=== PATIENT | female | born 1950 | race Caucasian/White ===

== ENCOUNTER → 2018-10-05 | Outpatient (CLI) | payer OTHER ==
[2018-10-10 10:17] LABS: Candida species (DNA Probe) Negative (NEGATIVE); G. vaginalis (DNA Probe) Negative (NEGATIVE); T. vaginalis (DNA Probe) Negative (NEGATIVE)
== END | disposition home or self-care (01) ==
LOC: LAB 16:00 → LAB SHORT 16:00
PROVIDERS: Registered Nurse
DX: N76.0 Acute vaginitis (principal); L29.3 Anogenital pruritus, unspecified; N94.9 Unspecified condition associated with female genital organs and menstrual cycle
CPT/HCPCS: 87480; 87510; 87660

== ENCOUNTER → 2020-06-17 | Outpatient (CLI) | payer OTHER ==
[2020-06-17 20:09] LABS: Percent Saturation 28.3 % (15.0-50.0)
== END | disposition home or self-care (01) ==
LOC: LAB SHORT 17:11 → LAB 17:11
PROVIDERS: Internal Medicine Hematology & Oncology
DX: D52.8 Other folate deficiency anemias (principal)
CPT/HCPCS: 82728; 83540; 83550

== ENCOUNTER → 2023-11-09 | Outpatient (CLI) | payer MEDICARE, OTHER ==
[~2023-11-09] MED LIST: AMLODIPINE BES2.5 MG PO; Buspirone HCl15 MG PO; CLOMIPRAMINE HC25 M2 PO; K-Dur10 MEQ; Lisinopril2.5 MG PO; MS Contin15 MG PO; OMEP20ER PO; OXYC10TA19 PO; PRAV20 PO; PRAZOSIN HCL1 M2 PO; SERT25 PO; TIOT18 INH; TIZA4 PO; Ventolin/Prove6.7 GM INH
[2023-11-12 05:52] LABS: COTININE, URN, SCREEN Negative ng/mL (Cutoff 100)
== END ==
LOC: LAB SHORT 15:28 → LAB 15:28 → EDSTATUS 11-03 07:25 → LAB FUT 11-03 07:25
PROVIDERS: Physician Assistant Surgical
DX: Z87.891 Personal history of nicotine dependence (principal)

== ENCOUNTER 2024-02-15 07:50 | Day surgery (SDC) | payer MEDICARE, OTHER ==
[2024-02-15] VITALS (18 sets, daily range): BP systolic 91–149; BP diastolic 49–84
[~2024-02-15] VITALS: Ht 149.9 cm; Wt 44.5 kg
[~2024-02-15 07:50] MED LIST changes: +Acetaminophen 500 MG Tab PO SCH; +CeFAZolin Sodium 2,000 MG in NS 100 ML IV SCH; +Chlorhexidine Mouth Care 15 ML UDC MT SCH; -K-Dur10 MEQ; +K-Dur10 MEQ PO; +Lactated Ringer's 1,000 ML IV SCH; +OxyCODONE HCL 10 MG TABCR PO SCH; +Ropivacaine 0.5% HCl/Pf 123.125 MG,EPINEPHrine HCL 0.25 MG,Ketorolac Tromethamine 15 MG... INFIL SCH; +TRELEGY ELLIPT1 EACH INH
[2024-02-15] MEDS ORDERED: Tranexamic Acid 100 ML IV SCH (07:51)
[2024-02-15] MEDS ORDERED: ALBU90OI INH (08:36)
[2024-02-15] MEDS ORDERED: Dexamethasone Sod Phos 10 MG/ML 1ML VIAL ONE (09:51)
[2024-02-15] MEDS ORDERED: Ondansetron HCl 2 MG / ML 2ML Vial ONE (09:51)
[2024-02-15] MEDS ORDERED: propofoL 20 ML IV ONE (09:51)
[2024-02-15] MEDS ORDERED: Ketorolac Tromethamine 30mg Vial ONE (09:51)
--- NOTE | 2024-02-15 09:52 | NUR ---
DR CABALLERO AND DR CALDERON ASKED IF OK TO GIVE OXYCONTIN PRESCRIBED DESPITE TAKING SCHEDULED NARCOTICS AT [address] CABALLERO AND DR CALDERON OK WITH OXYCONTIN.
[2024-02-15] MEDS ORDERED: TiZANidine HCl 4 MG Tab PO PRN (10:15)
[2024-02-15] MEDS ORDERED: DiphenhydrAMINE HCL 25 MG Cap PO PRN (10:15)
[2024-02-15] MEDS ORDERED: Bisacodyl 10 MG Supp PR PRN (10:15)
[2024-02-15] MEDS ORDERED: Promethazine HCl 25 MG Tab PO PRN (10:20)
[2024-02-15] MEDS ORDERED: Magnesium Hydroxide Conc 10 ML UDC PO PRN (10:25)
[2024-02-15] MEDS ORDERED: HYDROmorphone HCl/Pf 1MG SYR IV PRN (10:25)
[2024-02-15] MEDS ORDERED: Ondansetron HCl 2 MG / ML 2ML Vial IV PRN (10:25)
[2024-02-15] MEDS ORDERED: Prochlorperazine Edisylate 10 mg Vial IV PRN (10:25)
[2024-02-15] MEDS ORDERED: Lactated Ringer's 1,000 ML IV SCH (10:25)
[2024-02-15] MEDS ORDERED: OxyCODONE HCL 5 MG TAB PO PRN ×2 (10:25)
[2024-02-15] MEDS ORDERED: Metoclopramide HCl 5MG / ML 2ML Vial IV PRN (10:25)
[2024-02-15] MEDS ORDERED: FentaNYL Citrate 50 MCG/ML 2 ML Injection ONE ×2 (10:49→11:29)
[2024-02-15] MEDS ORDERED: Albuterol HFA200 ACT/6.7 GM INH INH PRN (11:10)
--- NOTE | 2024-02-15 12:55 | NUR ---
ARRIVAL TO UNIT PT ARRIVED TO UNIT FROM PACU ON BED. A&Ox4, SLEEPY- ANSWERS QUESTIONS APPROPRIATELY. VSS, PT ON 2L O2 VIA NC TO MAINTAIN SATS >90%. DAUGHTER AT BEDSIDE WITH PATIENT. L HIP AQUACEL C/D/I. POLAR PACK IN PLACE. PT DENIED NEEDS AT THIS TIME, REQUESTS WANT TO SLEEP. CALL LIGHT IN REACH, BED IN LOWEST POSITION, ORIENTED TO ROOM.
[2024-02-15] MEDS ORDERED: Acetaminophen 500 MG Tab PO SCH (16:00)
[2024-02-15] MEDS ORDERED: Omeprazole 20 MG CapCR PO SCH (16:30)
[2024-02-15] MEDS ORDERED: ASPI81CH PO (16:48)
[2024-02-15] MEDS ORDERED: CeFAZolin Sodium 2,000 MG in NS 100 ML IV SCH (18:00)
[2024-02-15] MEDS ORDERED: Ketorolac Tromethamine 15mg Vial IV SCH (18:00)
--- NOTE | 2024-02-15 18:08 | NUR ---
SHIFT SUMMARY POD 0 L CHRIS. NO ACUTE CHANGES TODAY. VSS, PRN O2 VIA NC TO MAINTAIN SAT >90%. TOLERATING ORALS. AMBULATES USING FWW c GB & 1 PERSON ASSIST; PT WEAK; WORKED c PHYSCIAL THERAPY TODAY, RECOMMENED TO WORK WITH THERAPY AGAIN IN THE MORNING BEFORE DISCHARGE. AQUACEL C/D/I. POLAR PACK IN USE. PT REPORTS PAIN TOLERABLE, MEDICATED PER EMAR. ANTICIPATED D/C TOMORROW. CALL LIGHT IN REACH, BED IN LOWEST POSITION, WILL REPORT TO NOC RN.
[2024-02-15] MEDS ORDERED: BusPIRone HCl 10 MG Tab PO SCH (21:00)
[2024-02-15] MEDS ORDERED: Docusate Sodium 100 MG Cap PO SCH (21:00)
[2024-02-15] MEDS ORDERED: Prazosin HCl 1 MG Cap PO SCH (21:00)
[2024-02-16 04:52] VITALS: BP 105/62
--- NOTE | 2024-02-16 06:01 | NUR ---
SHIFT SUMMARY PT POD 0 LEFT TOTAL HIP. PT HAS RESTED T/O THE NIGHT. PAIN HAS BEEN WELL MANANGED WITH MEDS PER EMAR. PT TOLERATING PO INTAKE AND IS VOIDING. SURGICAL SITE WNL. VITALS ARE STABLE. BED IN LOWEST POSITION, CALL LIGHT WITHIN REACH.
[2024-02-16 06:03] LABS: BASOPHILS ABSOLUTE AUTO 0.03 K/mm3 (0.00-0.23); BASOPHILS PERCENT AUTO 1 % (0-2); EOSINOPHILS ABSOLUTE AUTO 0.04 K/mm3 (0.00-0.68); EOSINOPHILS PERCENT AUTO 1 % (0-6); Hematocrit 20.8 % (33.0-51.0); Hemoglobin 6.5 g/dL (11.5-16.0); IMMATURE GRAN ABSOLUTE AUTO 0.02 K/mm3 (0.00-0.10); IMMATURE GRAN PERCENT AUTO 0 % (0-1); LYMPHOCYTES ABSOLUTE AUTO 1.75 K/mm3 (0.84-5.20); LYMPHOCYTES PERCENT AUTO 28 % (21-46); MONOCYTES ABSOLUTE AUTO 0.42 K/mm3 (0.16-1.47); MONOCYTES PERCENT AUTO 7 % (4-13); Mean Corpuscular HGB 32.7 pg (26.0-34.0); Mean Corpuscular HGB Conc 31.3 g/dL (31.5-36.5); Mean Corpuscular Volume 105 fL (80-100); Mean Platelet Volume 10.1 fL (9.1-12.4); NEUTROPHILS PERCENT AUTO 64 % (41-73); Platelet Count 202 K/mm3 (150-400); RDW Coefficient Variation 13.9 % (11.7-14.2); RDW Standard Deviation 53.1 fL (35.1-46.3); Red Blood Cell Count 1.99 M/mm3 (3.80-5.20); White Blood Cell Count 6.26 K/mm3 (4.00-11.30)
--- NOTE | 2024-02-16 06:24 | NUR ---
HGB PT HGB 6.5 WITH AM LABS, NO SIGNS OF BLEEDING. PT ASYMPTOMATIC. VITALS ARE STABLE. [employer] MENDER TOM ALDRIDGE NOTIFIED. SHE STATES DR. CABALLERO WILL BE MAKING ROUNDS SHORTLY. NO NEED TO CALL PROVIDER AT THIS TIME. WILL NOTIFY DAYSHIFT RN IN REPORT FOR FURTHER FOLLOW UP.
[2024-02-16 06:42] LABS: Bun/Creatinine Ratio 23.7 (12.0-20.0); Calcium, Blood 7.9 mg/dL (8.5-10.1); Creatinine, Blood 0.8 mg/dL (0.40-1.00)
--- NOTE | 2024-02-16 06:52 | NUR ---
HGB DAYSHIFT VIRGILIO KEMP NOTIFIED OF HGB RESULT OF 6.5 AND WILL FOLLOW UP WITH PROVIDER DURING ROUNDS.
[2024-02-16 08:08] VITALS: BP 120/67
[2024-02-16] MEDS ORDERED: Lisinopril 5 MG Tab PO SCH (09:00)
[2024-02-16] MEDS ORDERED: TRELEGY INHALER INH SCH (09:00)
[2024-02-16] MEDS ORDERED: ClomiPRAMINE HCl 25 MG Cap PO SCH (09:00)
[2024-02-16] MEDS ORDERED: AmLODIPine Besylate 5 MG Tab PO SCH (09:00)
[2024-02-16] MEDS ORDERED: Atorvastatin 10 MG Tab PO SCH (09:00)
[2024-02-16] MEDS ORDERED: Sertraline HCl 50 MG Tab PO SCH (09:00)
[2024-02-16] MEDS ORDERED: Aspirin 81 MG Chew PO SCH (09:00)
[2024-02-16] MEDS ORDERED: Potassium Chloride 10 Meq Tablet SA PO SCH (09:00)
[2024-02-16 10:12] LABS: BASOPHILS ABSOLUTE AUTO 0.03 K/mm3 (0.00-0.23); BASOPHILS PERCENT AUTO 1 % (0-2); EOSINOPHILS ABSOLUTE AUTO 0.04 K/mm3 (0.00-0.68); EOSINOPHILS PERCENT AUTO 1 % (0-6); Hematocrit 22.1 % (33.0-51.0); IMMATURE GRAN ABSOLUTE AUTO 0.02 K/mm3 (0.00-0.10); IMMATURE GRAN PERCENT AUTO 0 % (0-1); LYMPHOCYTES ABSOLUTE AUTO 1.19 K/mm3 (0.84-5.20); LYMPHOCYTES PERCENT AUTO 18 % (21-46); MONOCYTES ABSOLUTE AUTO 0.45 K/mm3 (0.16-1.47); MONOCYTES PERCENT AUTO 7 % (4-13); Mean Corpuscular HGB 32.7 pg (26.0-34.0); Mean Corpuscular HGB Conc 31.7 g/dL (31.5-36.5); Mean Corpuscular Volume 103 fL (80-100); Mean Platelet Volume 10.2 fL (9.1-12.4); NEUTROPHILS ABSOLUTE AUTO 4.86 K/mm3 (1.96-9.15); NEUTROPHILS PERCENT AUTO 74 % (41-73); Platelet Count 210 K/mm3 (150-400); RDW Coefficient Variation 13.7 % (11.7-14.2); RDW Standard Deviation 52.6 fL (35.1-46.3); Red Blood Cell Count 2.14 M/mm3 (3.80-5.20); White Blood Cell Count 6.59 K/mm3 (4.00-11.30)
[2024-02-16 15:23] VITALS: BP 133/70
--- NOTE | 2024-02-16 15:25 | NUR ---
DISCHARGE REVIEWED PRINTED D/C INSTRUCTIONS WITH PATIENT & DAUGHETER, BOTH VERBALIZED UNDERSTANDING. D/C HOME IN NO ACUTE DISTRESS.
[2024-02-16] MEDS ORDERED: Morphine Sulfate 15 MG TABCR PO SCH (21:00)
--- NOTE | 2024-02-17 16:39 | NUR ---
02/17/24 1639 Vy Dejesus VERIFICATIONS: EDIT CHART.
== END 2024-02-16 15:26 | disposition home or self-care (01) ==
LOC: ORSCMMR 07:50 → ORD 09:15 → ORSCMMR 12:48 → SURS 12:48 → ORSCMMR 02-16 15:26 → SURS 02-16 15:26
PROVIDERS: Orthopaedic Surgery; Physician Assistant Surgical
PROC: 0SRB0J9 Replacement of Left Hip Joint with Synthetic Substitute, Cemented, Open Approach (ICD-10-PCS; principal; 2024-02-15 09:15)
DX: M16.12 Unilateral primary osteoarthritis, left hip (principal); M87.9 Osteonecrosis, unspecified; I10 Essential (primary) hypertension; F17.210 Nicotine dependence, cigarettes, uncomplicated; J44.9 Chronic obstructive pulmonary disease, unspecified; Z79.899 Other long term (current) drug therapy
CPT/HCPCS: 36415; 72170; 80048; 85025; 94760; 97110; 97116; 97162; A9270; C1713; C1776; J0171; J0690; J0735; J1100; J1885; J2405; J2704; J2795; J3010; J7120

== ENCOUNTER 2024-06-20 09:36 | Day surgery (SDC) | payer MEDICARE ==
[~2024-06-20 09:36] MED LIST changes: +ALBU90OI INH; +ASPI81CH PO; -Acetaminophen 500 MG Tab PO SCH; -CeFAZolin Sodium 2,000 MG in NS 100 ML IV SCH; -Chlorhexidine Mouth Care 15 ML UDC MT SCH; -Lactated Ringer's 1,000 ML IV SCH; -OxyCODONE HCL 10 MG TABCR PO SCH; -Ropivacaine 0.5% HCl/Pf 123.125 MG,EPINEPHrine HCL 0.25 MG,Ketorolac Tromethamine 15 MG... INFIL SCH
[2024-06-20] MEDS ORDERED: CeFAZolin Sodium 2,000 MG in NS 100 ML IV SCH (10:00)
[2024-06-20] MEDS ORDERED: Lactated Ringer's 1,000 ML IV SCH ×2 (10:00→10:30)
[2024-06-20] MEDS ORDERED: Acetaminophen 500 MG Tab PO SCH ×2 (10:00→16:00)
[2024-06-20] MEDS ORDERED: Chlorhexidine Mouth Care 15 ML UDC MT SCH (10:00)
[2024-06-20] MEDS ORDERED: Tranexamic Acid 100 ML IV SCH (10:00)
[2024-06-20] MEDS ORDERED: OxyCODONE HCL 10 MG TABCR PO SCH (10:00)
[2024-06-20] MEDS ORDERED: Ropivacaine 0.5% HCl/Pf 123.125 MG,EPINEPHrine HCL 0.25 MG,Ketorolac Tromethamine 15 MG... INFIL SCH (10:00)
--- NOTE | 2024-06-20 10:16 | NUR ---
inTO Day Surgery VIA W/C. ABLE TO AMBULATE W/CANE. Patient confirms NPO status and agrees with scheduled surgery. History, Chart, Medications and Allergies reviewed before start of procedure.Pre-Op teaching done. Pt verbalizes understanding.
--- NOTE | 2024-06-20 10:23 | NUR ---
PT HAS A 1 CM SCAB ON RIGHT BOUCHER THAT IS BLACK AND IS RED AROUND SCAB. DR. CABALLERO HERE LOOKING AT PT. WILL NEED TO RE-SCHEDULE WHEN WOUND HEALS.
[2024-06-20] MEDS ORDERED: Ondansetron HCl 2 MG / ML 2ML Vial IV PRN (10:35)
[2024-06-20] MEDS ORDERED: FLU VACC TS2024-25(6MOS UP)/PF 45 MCG/0.5 ML SYRINGE IM ONE (10:35)
[2024-06-20] MEDS ORDERED: Bisacodyl 10 MG Supp PR PRN (10:35)
[2024-06-20] MEDS ORDERED: HYDROmorphone HCl/Pf 1MG SYR IV PRN (10:35)
[2024-06-20] MEDS ORDERED: Metoclopramide HCl 5MG / ML 2ML Vial IV PRN (10:35)
[2024-06-20] MEDS ORDERED: Magnesium Hydroxide Conc 10 ML UDC PO PRN (10:35)
[2024-06-20] MEDS ORDERED: OxyCODONE HCL 5 MG TAB PO PRN ×2 (10:40)
[2024-06-20] MEDS ORDERED: DiphenhydrAMINE HCL 25 MG Cap PO PRN (10:40)
[2024-06-20] MEDS ORDERED: Promethazine HCl 25 MG Tab PO PRN (10:40)
--- NOTE | 2024-06-20 10:40 | NUR ---
PT D/C TO HOME W/ DAUGHTER VIA W/C IN STABLE CONDITION. PT INSTRUCTED TO CALL DR. CABALLERO OFFICE TO RESCHEDULE
[2024-06-20] MEDS ORDERED: Docusate Sodium 100 MG Cap PO SCH (21:00)
[2024-06-21] MEDS ORDERED: Aspirin 81 MG Chew PO SCH (09:00)
== END 2024-06-20 10:40 | disposition home or self-care (01) ==
LOC: ORSCMMR 09:36 → ORD 11:00
DX: M17.11 Unilateral primary osteoarthritis, right knee (principal); Z53.9 Procedure and treatment not carried out, unspecified reason
CPT/HCPCS: J0171; J0735; J1885; J2795

== ENCOUNTER 2024-07-25 10:58 | Day surgery (SDC) | payer MEDICARE ==
[2024-07-25] VITALS (14 sets, daily range): BP systolic 127–148; BP diastolic 62–89
[~2024-07-25] VITALS: Ht 154.9 cm; Wt 47.0 kg
[~2024-07-25 10:58] MED LIST changes: +Acetaminophen 500 MG Tab PO SCH; +CeFAZolin Sodium 2,000 MG VIAL ONE; +CeFAZolin Sodium 2,000 MG in NS 100 ML IV SCH; +Chlorhexidine Mouth Care 15 ML UDC MT SCH; +Lactated Ringer's 1,000 ML IV SCH; +Tranexamic Acid 100 ML IV SCH
[2024-07-25] MEDS ORDERED: propofoL 50 ML IV ONE (11:16)
[2024-07-25] MEDS ORDERED: Bupivacaine 0.5% Inj 10 ML Vial ONE (11:16)
[2024-07-25] MEDS ORDERED: Ondansetron HCl 2 MG / ML 2ML Vial ONE (11:18)
[2024-07-25] MEDS ORDERED: Dexamethasone Sod Phos 10 MG/ML 1ML VIAL ONE (11:18)
[2024-07-25] MEDS ORDERED: Ropivacaine 0.5% HCl/Pf 123.125 MG,EPINEPHrine HCL 0.25 MG,Ketorolac Tromethamine 15 MG... INFIL SCH (11:50)
[2024-07-25] MEDS ORDERED: OxyCODONE HCL 10 MG TABCR PO SCH (11:50)
[2024-07-25] MEDS ORDERED: Ketorolac Tromethamine 30mg Vial ONE (12:22)
[2024-07-25] MEDS ORDERED: TiZANidine HCl 4 MG Tab PO PRN (12:35)
[2024-07-25] MEDS ORDERED: OxyCODONE HCL 5 MG TAB PO PRN ×2 (12:45)
[2024-07-25] MEDS ORDERED: Promethazine HCl 25 MG Tab PO PRN (12:45)
[2024-07-25] MEDS ORDERED: Lactated Ringer's 1,000 ML IV SCH (12:50)
[2024-07-25] MEDS ORDERED: Ondansetron HCl 2 MG / ML 2ML Vial IV PRN (12:50)
[2024-07-25] MEDS ORDERED: Metoclopramide HCl 5MG / ML 2ML Vial IV PRN (12:50)
[2024-07-25] MEDS ORDERED: HYDROmorphone HCl/Pf 1MG SYR IV PRN (12:50)
[2024-07-25] MEDS ORDERED: FLU VACC TS2024-25(6MOS UP)/PF 45 MCG/0.5 ML SYRINGE IM SCH (12:50)
[2024-07-25] MEDS ORDERED: Magnesium Hydroxide Conc 10 ML UDC PO PRN (12:50)
[2024-07-25] MEDS ORDERED: Bisacodyl 10 MG Supp PR PRN (12:55)
[2024-07-25] MEDS ORDERED: DiphenhydrAMINE HCL 25 MG Cap PO PRN (12:55)
[2024-07-25] MEDS ORDERED: Mometasone/Formoterol MDI 100/5 mcg 13 GM INH SCH (13:05)
[2024-07-25] MEDS ORDERED: Ipratropium Bromide INH 0.02% 0.5 mg/2.5ML Vial INH SCH (13:05)
[2024-07-25] MEDS ORDERED: Albuterol HFA200 ACT/6.7 GM INH INH PRN (13:05)
--- NOTE | 2024-07-25 15:09 | NUR ---
PT ARRIVED TO THE ROOM FROM PACU AT 1450. PT ABLE TO MOVE HER FEET, SHE REPORTS SENSATION IS RETURNING TO BLE. PT ALERT, ORIENTED AND PLEASANT. PAIN SPINAL SITE WNL. R KNEE INCISION SITE WNL. VSS.
[2024-07-25] MEDS ORDERED: Acetaminophen 500 MG Tab PO SCH (16:00)
[2024-07-25] MEDS ORDERED: Omeprazole 20 MG CapCR PO SCH (16:30)
--- NOTE | 2024-07-25 17:45 | NUR ---
SHIFT SUMMARY PT IS POD#0 FROM R TKA WITH DR. CABALLERO. PAIN MANAGED WITH TYLENOL AND TORADOL THIS SHIFT. PT HAS VOIDED. SHE HAS BEEN OOB TO THE CHAIR. SHE IS TOLERATING PO. PT USES CALL LIGHT APPROPRIATELY.
[2024-07-25] MEDS ORDERED: Ketorolac Tromethamine 15mg Vial IV SCH (18:00)
[2024-07-25] MEDS ORDERED: CeFAZolin Sodium 2,000 MG in NS 100 ML IV SCH (20:00)
[2024-07-25] MEDS ORDERED: Morphine Sulfate 15 MG TABCR PO SCH (21:00)
[2024-07-25] MEDS ORDERED: Prazosin HCl 1 MG Cap PO SCH (21:00)
[2024-07-25] MEDS ORDERED: BusPIRone HCl 10 MG Tab PO SCH (21:00)
[2024-07-25] MEDS ORDERED: Docusate Sodium 100 MG Cap PO SCH (21:00)
[2024-07-26 05:46] VITALS: BP 177/86
[2024-07-26 06:10] LABS: BASOPHILS ABSOLUTE AUTO 0.04 K/mm3 (0.00-0.23); BASOPHILS PERCENT AUTO 0 % (0-2); EOSINOPHILS ABSOLUTE AUTO 0.07 K/mm3 (0.00-0.68); EOSINOPHILS PERCENT AUTO 1 % (0-6); Hemoglobin 8.6 g/dL (11.5-16.0); IMMATURE GRAN ABSOLUTE AUTO 0.03 K/mm3 (0.00-0.10); IMMATURE GRAN PERCENT AUTO 0 % (0-1); LYMPHOCYTES ABSOLUTE AUTO 2.31 K/mm3 (0.84-5.20); LYMPHOCYTES PERCENT AUTO 23 % (21-46); MONOCYTES ABSOLUTE AUTO 0.76 K/mm3 (0.16-1.47); MONOCYTES PERCENT AUTO 8 % (4-13); Mean Corpuscular HGB 30.3 pg (26.0-34.0); Mean Corpuscular HGB Conc 30.7 g/dL (31.5-36.5); Mean Corpuscular Volume 99 fL (80-100); Mean Platelet Volume 9.8 fL (9.1-12.4); NEUTROPHILS ABSOLUTE AUTO 6.83 K/mm3 (1.96-9.15); NEUTROPHILS PERCENT AUTO 68 % (41-73); Platelet Count 279 K/mm3 (150-400); RDW Coefficient Variation 17.4 % (11.7-14.2); RDW Standard Deviation 62.7 fL (35.1-46.3); Red Blood Cell Count 2.84 M/mm3 (3.80-5.20); White Blood Cell Count 10.04 K/mm3 (4.00-11.30)
[2024-07-26 06:46] LABS: Bun/Creatinine Ratio 15.7 (12.0-20.0); Calcium, Blood 8.6 mg/dL (8.5-10.1); Creatinine, Blood 1.02 mg/dL (0.40-1.00); Potassium, Blood 4.3 mmol/L (3.5-5.5)
[2024-07-26 07:27] VITALS: BP 126/62
[2024-07-26] MEDS ORDERED: ASPI81CH PO (07:55)
[2024-07-26] MEDS ORDERED: Pravastatin Sodium 20 MG Tab PO SCH (09:00)
[2024-07-26] MEDS ORDERED: Sertraline HCl 50 MG Tab PO SCH (09:00)
[2024-07-26] MEDS ORDERED: Lisinopril 5 MG Tab PO SCH (09:00)
[2024-07-26] MEDS ORDERED: ClomiPRAMINE HCl 25 MG Cap PO SCH (09:00)
[2024-07-26] MEDS ORDERED: Potassium Chloride 20 MEQ TabCR PO SCH (09:00)
[2024-07-26] MEDS ORDERED: Aspirin 81 MG Chew PO SCH (09:00)
[2024-07-26] MEDS ORDERED: AmLODIPine Besylate 5 MG Tab PO SCH (09:00)
--- NOTE | 2024-07-26 11:57 | NUR ---
DISCHARGE NOTE PATIENT CLEARED BY PHYSICAL THERAPY FOR DC. PATIENT ALERT AND ORIENTED X4 - COMMUNICATES NEEDS EFFECTIVELY. RECEPTIVE TO EDUCATION. VSS. POD 1 R TKA - AQUACEL AND ROBE WRAP DRESSING C/D/I. PAIN TOLERABLE WITH PRESCRIBED THERAPY, INCLUDING MEDICATIONS, COOLING DEVICE, EXERCISES. TOLERATING PO INTAKE. VOIDING. DISCHARGE EDUCATION PROVIDED - STATES UNDERSTANDING AND ASKS QUESTIONS PRN TO GAIN FURTHER UNDERSTANDING. IV REMOVED. PERSONAL BELONGINGS AND COOLING DEVICE WITH PATIENT. PATIENT TRANSFERRED TO PERSONAL VEHICLE VIA WHEELCHAIR AT APPROX 1150.
== END 2024-07-26 11:45 | disposition home or self-care (01) ==
LOC: ORSCMMR 10:58 → ORD 12:30 → SURS 14:50 → ORSCMMR 07-26 11:45
PROVIDERS: Orthopaedic Surgery
PROC: 0SRC0J9 Replacement of Right Knee Joint with Synthetic Substitute, Cemented, Open Approach (ICD-10-PCS; principal; 2024-07-25 12:30)
PROC: 8E0Y0CZ Robotic Assisted Procedure of Lower Extremity, Open Approach (ICD-10-PCS; principal; 2024-07-25 12:30)
DX: M17.11 Unilateral primary osteoarthritis, right knee (principal); F41.9 Anxiety disorder, unspecified; F32.A Depression, unspecified; K21.9 Gastro-esophageal reflux disease without esophagitis; I10 Essential (primary) hypertension; J44.9 Chronic obstructive pulmonary disease, unspecified; Z79.82 Long term (current) use of aspirin; Z79.899 Other long term (current) drug therapy; Z87.891 Personal history of nicotine dependence
CPT/HCPCS: 36415; 73560-RT; 80048; 85025; 94760; 97110; 97116; 97162; 97530; A9270; C1713; C1776; J0171; J0690; J0735; J1100; J1885; J2405; J2704; J2795; J7120